=== PATIENT | male | born 1990 | race Native Hawaiian/Other Pacific Islander ===

== ENCOUNTER 2017-10-11 04:35 | Emergency (ER) | payer OTHER ==
[~2017-10-11] VITALS: Ht 162.6 cm; Wt 65.0 kg
[2017-10-11 04:46] VITALS: BP 118/68; PULSE 120; RESP 18; TEMP 99.1; O2SAT 99
[2017-10-11 04:55] VITALS: BP 137/75; PULSE 109; RESP 18; O2SAT 98
[2017-10-11 05:07] VITALS: RESP 16; O2SAT 99
[2017-10-11 05:08] VITALS: BP_SYST 123; BP_SYST 137; BP_DIAS 67; BP_DIAS 75
--- NOTE | 2017-10-11 05:08 | PD ---
HPI Chief Complaint: Cardiac Complaint Time Seen by Provider: 05:02 Travel History International Travel<30 days: No Contact w/Intl Traveler<30days: No Traveled to known affect area: No History of Present Illness HPI 27-year-old male presents to the emergency department by private transportation for complaint of feeling his heart pound and race rapidly. Patient states symptoms began approximately 1 hour ago. Patient was awake at the time. Patient denies any previous similar history. No report of fever or chills. No report of productive cough. No history of heart disease blood clotting disorder hypertension dyslipidemia diabetes admits to tobacco use. Patient admits to caffeine use but not excessively. Patient denies substance abuse. Patient is visiting from [place] [facility] and has been here for the past month to 2 months. Patient was not ill when he arrived to the [facility] and has not been near anyone who is ill in the [place]. Patient does not report any recent respiratory illness, although did share with the nursing staff 2 weeks ago cold symptoms reportedly. PFSH Past Medical History Narrative Medical Negative past medical history negative surgical history positive tobacco use nursing notes reviewed Medical History: Denies Significant Hx Diminished Hearing: No Tetanus Vaccination: Unknown Influenza Vaccination: No Past Surgical History Surgical History: No Previous Surgery Social History Alcohol Use: No Tobacco Use: Yes Substance Use: No Allergies-Medications (Allergen,Severity, Reaction): Coded Allergies: No Known Allergies (Unverified , 10/11/17) Reported Meds & Prescriptions Reported Meds & Active Scripts Active No Active Prescriptions or Reported Medications Review of Systems Except as stated in HPI: all other systems reviewed are Neg General / Constitutional: No: Fever, Chills HENT: No: Congestion Cardiovascular: Positive: Palpitations, Tachycardia, No: Chest Pain or Discomfort Respiratory: No: Shortness of Breath Gastrointestinal: Positive: Nausea, No: Vomiting, Diarrhea, Abdominal Pain Genitourinary: No: Dysuria Musculoskeletal: No: Myalgias, Arthralgias, Edema, Pain Skin: No Rash Neurologic: No: Weakness Psychiatric: Positive: Anxiety Endocrine: No: Heat Intolerance Hematologic/Lymphatic: No: Easy Bruising Physical Exam Narrative GENERAL: Well-developed well-nourished male no acute distress no respiratory distress SKIN: Warm and dry. HEAD: Normocephalic. EYES: No scleral icterus. No injection or drainage. NECK: Supple, trachea midline. No JVD or lymphadenopathy. CARDIOVASCULAR: Increased regular rate and rhythm without murmurs, gallops, or rubs. RESPIRATORY: Breath sounds equal bilaterally. No accessory muscle use. GASTROINTESTINAL: Abdomen soft, non-tender, nondistended. MUSCULOSKELETAL: No cyanosis, or edema. BACK: Nontender without obvious deformity. No CVA tenderness. Data Data Last Documented VS Vital Signs Date Time Temp Pulse Resp B/P (MAP) Pulse Ox O2 Delivery O2 Flow Rate FiO2 10/11/17 05:08 137/75 (95) 123/67 (85) 10/11/17 05:07 99 Room Air 10/11/17 05:07 16 10/11/17 04:55 109 10/11/17 04:46 99.1 Orders Orders Electrocardiogram (10/11/17 05:02) Ckmb (Isoenzyme) Profile (10/11/17 05:02) Complete Blood Count With Diff (10/11/17 05:02) Comprehensive Metabolic Panel (10/11/17 05:02) D-Dimer (10/11/17 05:02) Magnesium (Mg) (10/11/17 05:02) Prothrombin Time / Inr (Pt) (10/11/17 05:02) Act Partial Throm Time (Ptt) (10/11/17 05:02) Troponin I (10/11/17 05:02) Ecg Monitoring (10/11/17 05:02) Bilateral Bp Monitoring (10/11/17 05:02) Iv Access Insert/Monitor (10/11/17 05:02) Oximetry (10/11/17 05:02) Oxygen Administration (10/11/17 05:02) Sodium Chloride 0.9% Flush (Ns Flush) (10/11/17 05:15) Chest, Pa & Lat (10/11/17 05:02) Sodium Chlor 0.9% 1000 Ml Inj (Ns 1000 M (10/11/17 05:15) Influenzae A/B Antigen (10/11/17 05:02) Thyroid Stimulating Hormone (10/11/17 05:02) Urinalysis - C+S If Indicated (10/11/17 05:02) Labs Laboratory Tests Test 10/11/17 05:06 10/11/17 05:42 White Blood Count 9.9 TH/MM3 Red Blood Count 4.49 MIL/MM3 Hemoglobin 14.5 GM/DL Hematocrit 40.5 % Mean Corpuscular Volume 90.2 FL Mean Corpuscular Hemoglobin 32.3 PG Mean Corpuscular Hemoglobin Concent 35.8 % Red Cell Distribution Width 12.9 % Platelet Count 215 TH/MM3 Mean Platelet Volume 7.6 FL Neutrophils (%) (Auto) 59.4 % Lymphocytes (%) (Auto) 30.8 % Monocytes (%) (Auto) 3.8 % Eosinophils (%) (Auto) 5.3 % Basophils (%) (Auto) 0.7 % Neutrophils # (Auto) 5.9 TH/MM3 Lymphocytes # (Auto) 3.0 TH/MM3 Monocytes # (Auto) 0.4 TH/MM3 Eosinophils # (Auto) 0.5 TH/MM3 Basophils # (Auto) 0.1 TH/MM3 CBC Comment DIFF FINAL Differential Comment Prothrombin Time 11.2 SEC Prothromb Time International Ratio 1.1 RATIO Activated Partial Thromboplast Time 23.7 SEC D-Dimer Quantitative (PE/DVT) LESS THAN 0.19 MG/L FEU Blood Urea Nitrogen 16 MG/DL Creatinine 1.02 MG/DL Random Glucose 128 MG/DL Total Protein 8.6 GM/DL Albumin 4.6 GM/DL Calcium Level 9.1 MG/DL Magnesium Level 2.0 MG/DL Alkaline Phosphatase 65 U/L Aspartate Amino Transf (AST/SGOT) 8 U/L Alanine Aminotransferase (ALT/SGPT) 14 U/L Total Bilirubin 0.4 MG/DL Sodium Level 139 MEQ/L Potassium Level 3.2 MEQ/L Chloride Level 105 MEQ/L Carbon Dioxide Level 25.6 MEQ/L Anion Gap 8 MEQ/L Estimat Glomerular Filtration Rate 88 ML/MIN Total Creatine Kinase 53 U/L Troponin I LESS THAN 0.02 NG/ML Thyroid Stimulating Hormone 3rd Gen 2.620 uIU/ML Urine Color YELLOW Urine Turbidity CLEAR Urine pH 5.5 Urine Specific [place] 1.025 Urine Protein NEG mg/dL Urine Glucose (UA) NEG mg/dL Urine Ketones 10 mg/dL Urine Occult Blood NEG Urine Nitrite NEG Urine Bilirubin NEG Urine Urobilinogen LESS THAN 2.0 MG/DL Urine Leukocyte Esterase NEG Urine RBC 1 /hpf Urine WBC 1 /hpf Urine Mucus FEW /lpf Microscopic Urinalysis Comment CULT NOT INDICATED MDM Medical Decision Making Medical Screen Exam Complete: Yes Emergency Medical Condition: Yes Medical Record Reviewed: Yes Interpretation(s) EKG: Sinus tachycardia rate [address] elevation injury pattern or ectopy noted Last Impressions Chest X-Ray 10/11/17 0502 Signed Impressions: Service Date/Time: October 05:33 - CONCLUSION: 1. No acute cardiopulmonary disease. Frankie Brannon MD CBC & BMP Diagram 10/11/17 05:06 Total Protein 8.6 H, Albumin 4.6, Calcium Level 9.1, Magnesium Level 2.0, Alkaline Phosphatase 65, Aspartate Amino Transf (AST/SGOT) 8 L, Alanine Aminotransferase (ALT/SGPT) 14, Total Bilirubin 0.4 Vital Signs Date Time Temp Pulse Resp B/P (MAP) Pulse Ox O2 Delivery O2 Flow Rate FiO2 10/11/17 05:08 137/75 (95) 123/67 (85) 10/11/17 05:07 99 Room Air 10/11/17 05:07 16 99 Room Air 10/11/17 04:55 109 18 137/75 (95) 98 10/11/17 04:46 99.1 120 18 118/68 (85) 99 trop: less than 0.02, not elevated d-dimer: less than 0.19, not elevated influenza: negative Differential Diagnosis Palpitations, arrhythmia, chest pain, ACS, pneumonia, pneumothorax, PE, viral syndrome, dehydration, thyroid dysfunction, substance ingestion, dehydration, caffeine sensitivity Narrative Course Patient placed on electronic device monitor with continuous pulse oximetry IV access obtained specimens collected and sent for resulting EKG performed shows sinus tachycardia without acute ST elevation or injury pattern Patient administered 1 L normal saline Patient administered additional saline bolus and an oral dose of potassium replacement for hypokalemia of 3.2 Patient identified to have normal range TSH. Patient clinically stable and symptomatically improved Patient aware of results and reports feels symptomatically improved; patient now reports that he has been under stress as he is preparing for an exam. Diagnosis Primary Impression: Heart palpitations Additional Impression: Hypokalemia Referrals: Primary Care Physician 2 days school clinic provider or PCP Patient Instructions: General Instructions Additional Instructions: Increase fluid hydration Follow-up with primary care provider/school clinic provider Take acetaminophen as needed for fever 100.4F or greater Add potassium containing foods and beverages to dietary intake Return to the emergency department for any concerns or change in condition Scripts No Active Prescriptions or Reported Meds Disposition: 01 DISCHARGE HOME Condition: Stable Salter,Chelly H. MD Oct 11, 2017 05:08
[2017-10-11] MEDS ORDERED: SODIUM CHLOR 0.9% 1000 ML INJ 1,000 ML IV ONE ×2 (05:15→06:00)
[2017-10-11] MEDS ORDERED: SODIUM CHLORIDE 0.9% FLUSH 10 ML FLUSH IVF PRN (05:15)
[2017-10-11 05:17] LABS: AUTOMATED NEUTROPHIL # 5.9 TH/MM3 (1.8-7.7); BASOPHIL # 0.1 TH/MM3 (0-0.2); BASOPHIL % 0.7 % (0.0-2.0); EOSINOPHIL # 0.5 TH/MM3 (0-0.4); EOSINOPHIL % 5.3 % (0.0-4.0); HEMATOCRIT 40.5 % (39.0-51.0); HEMOGLOBIN 14.5 GM/DL (13.0-17.0); LYMPH % 30.8 % (9.0-44.0); MEAN CELL VOLUME 90.2 FL (80.0-100.0); MEAN CORPUSCULAR HEMOGLOBIN 32.3 PG (27.0-34.0); MEAN CORPUSCULAR HGB CONC 35.8 % (32.0-36.0); MEAN PLATELET VOLUME 7.6 FL (7.0-11.0); MONO % 3.8 % (0.0-8.0); MONOCYTE # 0.4 TH/MM3 (0-0.9); NEUT % 59.4 % (16.0-70.0); PLATELET COUNT 215 TH/MM3 (150-450); RED BLOOD COUNT 4.49 MIL/MM3 (4.50-5.90); RED CELL DISTRIBUTION WIDTH 12.9 % (11.6-17.2); WHITE BLOOD COUNT 9.9 TH/MM3 (4.0-11.0)
[2017-10-11 05:34] LABS: ALBUMIN 4.6 GM/DL (3.4-5.0); ALT (GPT) 14 U/L (12-78); AST (GOT) 8 U/L (15-37); BICARBONATE 25.6 MEQ/L (21.0-32.0); BLOOD UREA NITROGEN 16 MG/DL (7-18); CALCIUM 9.1 MG/DL (8.5-10.1); CHLORIDE 105 MEQ/L (98-107); CREATININE 1.02 MG/DL (0.60-1.30); GLOMERULAR FILTRATION RATE 88 ML/MIN (>89); GLUCOSE,RANDOM 128 MG/DL (74-106); SODIUM (NA) 139 MEQ/L (136-145)
[2017-10-11 05:36] LABS: INTERNATIONAL NORMALIZED RATIO 1.1 RATIO; PROTHROMBIN TIME - PATIENT 11.2 SEC (9.8-11.6)
[2017-10-11 05:45] LABS: ALKALINE PHOSPHATASE 65 U/L (45-117); TOTAL BILIRUBIN ADULT 0.4 MG/DL (0.2-1.0); TOTAL PROTEIN 8.6 GM/DL (6.4-8.2); TROPONIN I LESS THAN 0.02 NG/ML (0.02-0.05)
--- NOTE | 2017-10-11 05:47 | RADRPT ---
EXAM DATE/TIME: 10/11/2017 05:33 [facility] COMPARISON: No previous studies available for comparison. INDICATIONS : Hypertensive episode. MEDICAL HISTORY : None. SURGICAL HISTORY : None. ENCOUNTER: Initial ACUITY: 1 day PAIN SCORE: 0/10 LOCATION: Bilateral chest FINDINGS: PA and lateral views of the chest demonstrate the lungs to be symmetrically aerated without evidence of mass, infiltrate or effusion. The cardiomediastinal contours are unremarkable. Osseous structure s are intact. CONCLUSION: 1. No acute cardiopulmonary disease. Frankie Brannon MD on October 11, 2017 at 5:46 Board Certified Radiologist. This report was verified electronically.
[2017-10-11 05:54] LABS: D-DIMER LESS THAN 0.19 MG/L FEU (0.00-0.50)
[2017-10-11 05:54] LABS: BILIRUBIN, URINE NEG (NEG); BLOOD, URINE NEG (NEG); GLUCOSE,URINE NEG (NEG); KETONE, URINE 10 mg/dL (NEG); MUCUS URINE FEW /lpf (OCC); NITRITE,URINE NEG (NEG); PH, URINE 5.5 (5.0-8.5); URINE COLOR YELLOW (YELLW/STRAW); URINE LEUKOCYTE ESTERASE NEG (NEG)
[2017-10-11] MEDS ORDERED: POTASSIUM CHLORIDE 20 MEQ CONTROLLED RELEASE TAB PO ONE (06:00)
[2017-10-11 06:17] VITALS: BP 123/69; PULSE 78; RESP 18; O2SAT 99
--- NOTE | 2017-10-11 10:57 | EKG ---
Date Performed: 10/11/2017 Time Performed: 04:59:29 PTAGE: 27 years EKG: SINUS TACHYCARDIA POSSIBLE LEFT ATRIAL ENLARGEMENT NONSPECIFIC T-WAVE ABNORMALITY ABNORMAL RHYTHM ECG NO PREVIOUS TRACING DOCTOR: Guanako Gutierrez Interpretating Date/Time 10/11/2017 10:52:22
== END 2017-10-11 06:43 | disposition home or self-care (01) ==
LOC: NEPC 04:35
DX: R00.0 Tachycardia, unspecified (principal); E87.6 Hypokalemia; Z72.0 Tobacco use
CPT/HCPCS: 71046; 80053; 81001; 82550; 83735; 84443; 84484; 85025; 85379; 85610; 85730; 87804; 93005; 96360; 99284; J7030